=== PATIENT | male | born 1985 | race Caucasian/White ===

== ENCOUNTER 2017-12-29 11:49 | Emergency (ER) | payer MEDICAID ==
[2017-12-29] MEDS: ALBUTEROL 0.083% (NEB) 2.5 MG/3 ML AMP HHN ×2 (13:00→14:43)
[2017-12-29] MEDS: IPRATROPIUM (NEB) 0.5 MG/2.5 ML AMP HHN (14:43)
== END 2017-12-29 15:35 | disposition home or self-care (01) ==
LOC: FTE 11:49
DX: J06.9 Acute upper respiratory infection, unspecified (principal)
CPT/HCPCS: 71045; 94640; 94664; 99284-25